=== PATIENT | male | born 1970 | race Caucasian/White ===

== ENCOUNTER 2018-01-20 08:05 | Emergency (ER) | payer MEDICAID, OTHER ==
[~2018-01-20] VITALS: Ht 172.7 cm; Wt 86.4 kg
[~2018-01-20 08:05] MED LIST: CYCL-1 PO; DICL50TA8 PO; DOCU-28 PO; HYDR-3972 PO; LISI-604 PO; METF-436 PO
[2018-01-20] MEDS ORDERED: ketorolac trometh inj. 60 MG/2 ML VIAL IM ONE (08:50)
[2018-01-20] MEDS ORDERED: HYDROcodone/acetaminophen 10/325mg tab PO ONE (08:50)
[2018-01-20 09:10] LABS: BASOPHILS % (AUTO) 0 % (0-1); EOSINOPHILS % (AUTO) 0 % (0-6); HEMATOCRIT 40.9 % (42.0-52.0); HEMOGLOBIN 14.1 g/dl (14.0-17.9); LYMPHOCYTES # (AUTO) 0.5 X10'3 (1.1-4.8); MEAN CORPUSCULAR HEMOGLOBIN 28.8 PG (27.0-31.0); MEAN CORPUSCULAR HGB CONC 34.6 % (33.0-36.5); MEAN CORPUSCULAR VOLUME 83.4 FL (78-98); MEAN PLATELET VOLUME 7.7 FL (7.4-10.4); MONOCYTES # (AUTO) 0.9 X10'3 (0-0.9); NEUTROPHILS # (AUTO) 16.2 X10'3 (1.8-7.7); PLATELET COUNT 190 X10'3 (140-440); RED CELL DISTRIBUTION WIDTH 14.5 % (11.5-14.5); WHITE BLOOD COUNT 17.7 X10'3 (4.5-11.0)
[2018-01-20 09:14] LABS: CLARITY,URINE CLEAR (Clear); COLOR,URINE AMBER (Yellow); GLUCOSE, URINE NEGATIVE (Neg); KETONES,URINE >=80 mg/dl (Neg); LEUKOCYTE ESTERASE ,URINE NEGATIVE (Neg); NITRITES, URINE NEGATIVE (Neg); OCCULT BLOOD,URINE SMALL (Neg); PROTEIN,URINE 100 mg/dl (Neg); UROBILINOGEN,URINE >=8.0 E.U/dL (0.2-1.0)
[2018-01-20 09:19] LABS: UA COLLECTION TYPE CLN CATCH MIDSTREAM
[2018-01-20 09:21] LABS: MUCUS STRANDS MANY /LPF (Neg); SQUAMOUS EPITHELIAL CELL,UR FEW /LPF (FEW)
[2018-01-20 09:24] LABS: BACTERIA,URINE NONE SEEN /HPF (Neg); WBC,URINE 0-4 /HPF (0-4)
[2018-01-20 09:24] LABS: ALANINE AMINOTRANSFERASE 43 U/L (12-78); ALBUMIN 3.1 G/DL (3.4-5.0); ALBUMIN/GLOBULIN RATIO 0.6 (1.1-1.5); ALKALINE PHOSPHATASE 86 IU/L (46-116); ANION GAP 10 (8-16); ASPARTATE AMINO TRANSFERASE 24 U/L (10-37); BILIRUBIN,TOTAL 1.3 MG/DL (0.1-1.0); BLOOD UREA NITROGEN 14 MG/DL (7-18); BUN/CREATININE RATIO 13.9 (5.4-32.0); CHLORIDE 97 MMOL/L (99-107); CREATININE 1.01 MG/DL (0.60-1.10); GLUCOSE 144 MG/DL (70-104); LIPASE 52 U/L (73-393); POTASSIUM 3.9 MMOL/L (3.5-5.1); SODIUM 133 MMOL/L (135-145); TOTAL CARBON DIOXIDE 25.6 MMOL/L (24-32); TOTAL PROTEIN 8.2 G/DL (6.4-8.2); eGFR 80 ML/MIN
[2018-01-20 09:27] LABS: SPERM MODERATE /HPF (NEGATIVE)
[2018-01-20 09:29] LABS: CALCIUM 9.4 MG/DL (8.5-10.1)
[2018-01-20 10:26] VITALS: BP 128/74
== END 2018-01-20 10:28 | disposition home or self-care (01) ==
LOC: ER 08:05
DX: M54.5 Low back pain (principal); D72.829 Elevated white blood cell count, unspecified; I10 Essential (primary) hypertension; E11.9 Type 2 diabetes mellitus without complications; G89.29 Other chronic pain; F12.90 Cannabis use, unspecified, uncomplicated; F15.90 Other stimulant use, unspecified, uncomplicated; Z79.84 Long term (current) use of oral hypoglycemic drugs; Z79.899 Other long term (current) drug therapy; X50.1XXA Overexertion from prolonged static or awkward postures, initial encounter; Y93.39 Activity, other involving climbing, rappelling and jumping off; Y92.89 Other specified places as the place of occurrence of the external cause; Y99.8 Other external cause status
CPT/HCPCS: 36415; 71046; 80053; 81001; 83690; 85025; 96372; 99285; J1885

== ENCOUNTER 2018-09-04 22:04 | Emergency (ER) | payer MEDICAID ==
[~2018-09-04] VITALS: Ht 175.3 cm; Wt 81.8 kg
[2018-09-04 22:21] VITALS: BP 128/82
[2018-09-05] MEDS ORDERED: ondansetron 4mg rapidly disintigrating tab PO ONE (00:30)
[2018-09-05] MEDS ORDERED: sulfamethoxazole/trimethoprim DS (800/160mg) tablet PO ONE (00:30)
[2018-09-05] MEDS ORDERED: SULF1TAB49 PO (01:31)
[2018-09-05] MEDS ORDERED: TETanus/Pertussis (Acell)/Diphther VAC/PF (Tdap-Adult) 0.5ml syringe IM ONE (01:35)
[2018-09-05] MEDS ORDERED: bacitracin 15gm ointment TP ONE (01:35)
[2018-09-06] MEDS ORDERED: iohexol 300mg/ml 100ml inj. ONE (22:41)
== END 2018-09-05 02:03 | disposition home or self-care (01) ==
LOC: ER 22:05
DX: L02.01 Cutaneous abscess of face (principal); I10 Essential (primary) hypertension; E11.9 Type 2 diabetes mellitus without complications; G89.29 Other chronic pain; F12.90 Cannabis use, unspecified, uncomplicated; F15.90 Other stimulant use, unspecified, uncomplicated; Z79.84 Long term (current) use of oral hypoglycemic drugs; Z79.899 Other long term (current) drug therapy; W10.8XXA Fall (on) (from) other stairs and steps, initial encounter; Y93.89 Activity, other specified; Y92.89 Other specified places as the place of occurrence of the external cause; Y99.8 Other external cause status
CPT/HCPCS: 10060; 70450; 90471; 90715; 99284; Q9967

== ENCOUNTER 2018-09-06 19:24 | Inpatient (IN) | payer MEDICAID ==
[~2018-09-06] VITALS: Ht 175.3 cm; Wt 86.5 kg
[~2018-09-06 19:24] MED LIST changes: +SULF1TAB49 PO
[2018-09-06] MEDS ORDERED: ibuprofen tablet 400 MG TABLET PO ONE (21:45)
[2018-09-06] MEDS ORDERED: ibuprofen 200mg tablet PO ONE (21:45)
[2018-09-06 22:00] LABS: BASOPHILS # (AUTO) 0.1 X10'3 (0-0.2); BASOPHILS % (AUTO) 0.5 % (0-1); EOSINOPHILS # (AUTO) 0.5 X10'3 (0-0.9); EOSINOPHILS % (AUTO) 4.5 % (0-6); HEMATOCRIT 38.9 % (42.0-52.0); HEMOGLOBIN 13.1 g/dl (14.0-17.9); LYMPHOCYTES % (AUTO) 18.1 % (21-51); MEAN CORPUSCULAR HEMOGLOBIN 28.3 PG (27.0-31.0); MEAN CORPUSCULAR HGB CONC 33.6 g/dL (33.0-36.5); MEAN CORPUSCULAR VOLUME 84.2 FL (78-98); MEAN PLATELET VOLUME 7.9 FL (7.4-10.4); MONOCYTES # (AUTO) 0.9 X10'3 (0-0.9); MONOCYTES % (AUTO) 8.1 % (2-12); NEUTROPHILS # (AUTO) 7.7 X10'3 (1.8-7.7); NEUTROPHILS % (AUTO) 68.8 % (42-75); PLATELET COUNT 259 X10'3 (140-440); RED BLOOD COUNT 4.62 X10'6 (4.70-6.10); RED CELL DISTRIBUTION WIDTH 14.9 % (11.5-14.5); WHITE BLOOD COUNT 11.2 X10'3 (4.5-11.0)
[2018-09-06 22:04] LABS: ANION GAP 5 (8-16); BLOOD UREA NITROGEN 14 MG/DL (7-18); BUN/CREATININE RATIO 15.6 (5.4-32.0); CALCIUM 9.9 MG/DL (8.5-10.1); CHLORIDE 103 MMOL/L (99-107); GLUCOSE 134 MG/DL (70-104); POTASSIUM 4.6 MMOL/L (3.5-5.1); SODIUM 137 MMOL/L (135-145); TOTAL CARBON DIOXIDE 29.5 MMOL/L (24-32); eGFR > 90 ML/MIN
[2018-09-06] MEDS ORDERED: piperacillin/tazo 3.375gm/50ml 50 ML IV ONE (22:35)
[2018-09-06] MEDS ORDERED: vancomycin/NS 1 GM ADD-VANTAGE 250 ML IV ONE (22:35)
--- NOTE | 2018-09-07 01:17 | NUR ---
forehead abcess swab for culture collected and taken to lab.
[2018-09-07] MEDS ORDERED: magnesium Cl slow-release 64mg tablet PO PRN (02:25)
[2018-09-07] MEDS ORDERED: ondansetron/PF 4mg/2ml inj IV PRN (02:25)
[2018-09-07] MEDS ORDERED: HYDROcodone/acetaminophen 5mg/325mg tablet PO PRN (02:25)
[2018-09-07] MEDS ORDERED: glucagon, human recombinant 1mg kit SUBCUT PRN (02:25)
[2018-09-07] MEDS ORDERED: potassium Cl 40MEQ/NS 500ml 500 ML IV PRN ×2 (02:25)
[2018-09-07] MEDS ORDERED: dextrose 50%-water 50ml dispensing syringe IV PRN ×2 (02:25)
[2018-09-07] MEDS ORDERED: HYDROcodone/acetaminophen 10/325mg tab PO PRN (02:25)
[2018-09-07] MEDS ORDERED: MESSAGE TO PHARMACY PO ONE (02:25)
[2018-09-07] MEDS ORDERED: magnesium 2GM in 50ml NS 50 ML IV PRN (02:25)
[2018-09-07] MEDS ORDERED: mag hydrox/Alum hydrox/simeth 30ml oral suspension PO PRN (02:25)
[2018-09-07] MEDS ORDERED: dextrose ORAL solution 15 GM/59 ML bottle PO PRN ×2 (02:25)
[2018-09-07] MEDS ORDERED: magnesium hydroxide 30ml (MOM) UD suspension PO PRN (02:25)
[2018-09-07] MEDS ORDERED: insulin Lispro (HumaLOG) vial - multi-dose SQ SCH (02:25)
[2018-09-07] MEDS ORDERED: potassium Cl 20 mEq SR tablet PO PRN ×2 (02:25)
[2018-09-07] MEDS ORDERED: acetaminophen 325mg tablet PO PRN (02:25)
[2018-09-07] MEDS ORDERED: magnesium 4gm in 100ml NS 100 ML IV PRN (02:25)
[2018-09-07 03:00] VITALS: BP 156/91
[2018-09-07] MEDS: normal saline 1000ml 1,000 ML IV SCH ×3 (03:57→21:32)
--- NOTE | 2018-09-07 06:07 | NUR ---
Pt repeatedly refused shower, bed bath, and to answer any questions once in bed.
--- NOTE | 2018-09-07 06:30 | NUR ---
Patient in room [facility]. I have received report from Faheem BACH and had the opportunity to ask questions and assume patient care.
--- NOTE | 2018-09-07 06:39 | NUR ---
Problems reprioritized. Patient report given, questions answered & plan of care reviewed with Richard RN.
[2018-09-07 07:23] VITALS: BP 157/92
[2018-09-07] MEDS: K and/or MAG REPLACEMENT MC SCH (08:00)
--- NOTE | 2018-09-07 09:19 | NUR ---
PATIENT WAS FOUND TO HAVE LICE NITZ IN HIS HAIR, UPON FINDING THIS WE ASKED THE PATIENT IF HE WOULD AGREE TO HAVE HIS HAIR SHAVED OFF. PATIENT AGREED TO HAVE HAIR AND [place] SHAVED OFF AT THIS TIME. TECH SHAVED PATIENT HEAD AND FACIAL HAIR AT THIS TIME.
[2018-09-07] MEDS: vancomycin inj 1,250 MG in NS 250ml IV soln IV SCH ×3 (09:38→23:59)
[2018-09-07] MEDS: cefepime 1GM/NS ADD-VANTAGE 100 ML IV SCH ×3 (09:39→23:19)
[2018-09-07] MEDS: lisinopril 5mg tablet PO SCH (09:39)
[2018-09-07] MEDS: enoxaparin 40mg/0.4ml syringe SQ SCH (09:44)
[2018-09-07] MEDS ORDERED: Permethrin 1% 59ml topical rinse TP ONE (10:00)
[2018-09-07 11:00] VITALS: BP 142/100
[2018-09-07] MEDS: ibuprofen tablet 400 MG TABLET PO PRN ×2 (12:10→19:39)
[2018-09-07] MEDS: acetaminophen 325mg tablet PO PRN ×2 (12:11→19:39)
--- NOTE | 2018-09-07 15:40 | NUR ---
DM Consult: Pt A1C <7 and not appropriate for ed at this time. Addendum: 09/07/18 at [address] Amended: Links added.
--- NOTE | 2018-09-07 18:16 | NUR ---
Problems reprioritized. Patient report given, questions answered & plan of care reviewed with Oren BACH.
[2018-09-07 19:10] VITALS: BP 122/76
[2018-09-07] MEDS: cyclobenzaprine 10mg tablet PO PRN (19:39)
[2018-09-07] MEDS: lactobacillus rhamnosus 10,000 MMU CELLS/CAPSULE PO SCH (20:09)
[2018-09-07] MEDS ORDERED: temazepam 15mg capsule PO PRN (21:00)
[2018-09-07] MEDS: insulin glargine (Lantus) pen - multi-dose SQ SCH (21:00)
[2018-09-08] VITALS: BP 118/78
[2018-09-08 05:28] LABS: BASOPHILS # (AUTO) 0.1 X10'3 (0-0.2); BASOPHILS % (AUTO) 0.9 % (0-1); EOSINOPHILS # (AUTO) 0.5 X10'3 (0-0.9); EOSINOPHILS % (AUTO) 7.9 % (0-6); HEMATOCRIT 37.5 % (42.0-52.0); HEMOGLOBIN 12.7 g/dl (14.0-17.9); LYMPHOCYTES # (AUTO) 1.4 X10'3 (1.1-4.8); LYMPHOCYTES % (AUTO) 21.9 % (21-51); MEAN CORPUSCULAR HEMOGLOBIN 28.4 PG (27.0-31.0); MEAN CORPUSCULAR HGB CONC 33.8 g/dL (33.0-36.5); MEAN CORPUSCULAR VOLUME 84.1 FL (78-98); MEAN PLATELET VOLUME 7.6 FL (7.4-10.4); MONOCYTES # (AUTO) 0.5 X10'3 (0-0.9); MONOCYTES % (AUTO) 7.2 % (2-12); NEUTROPHILS # (AUTO) 3.9 X10'3 (1.8-7.7); NEUTROPHILS % (AUTO) 62.1 % (42-75); PLATELET COUNT 220 X10'3 (140-440); RED BLOOD COUNT 4.46 X10'6 (4.70-6.10); RED CELL DISTRIBUTION WIDTH 14.9 % (11.5-14.5); WHITE BLOOD COUNT 6.3 X10'3 (4.5-11.0)
[2018-09-08 05:40] LABS: ALANINE AMINOTRANSFERASE 65 U/L (12-78); ALBUMIN 2.5 G/DL (3.4-5.0); ALBUMIN/GLOBULIN RATIO 0.6 (1.1-1.5); ALKALINE PHOSPHATASE 69 IU/L (46-116); ANION GAP 6 (8-16); ASPARTATE AMINO TRANSFERASE 39 U/L (10-37); BILIRUBIN,TOTAL 0.2 MG/DL (0.1-1.0); BLOOD UREA NITROGEN 10 MG/DL (7-18); BUN/CREATININE RATIO 11.8 (5.4-32.0); CHLORIDE 108 MMOL/L (99-107); CHOLESTEROL 131 MG/DL (0-200); CREATININE 0.85 MG/DL (0.60-1.10); GLUCOSE 102 MG/DL (70-104); HDL CHOLESTEROL 33 MG/DL (35-60); LDL CHOLESTEROL 87 MG/DL (50-100); POTASSIUM 4.1 MMOL/L (3.5-5.1); SODIUM 139 MMOL/L (135-145); TOTAL CARBON DIOXIDE 25.2 MMOL/L (24-32); TRIGLYCERIDES 103 MG/DL (20-135); eGFR > 90 ML/MIN
--- NOTE | 2018-09-08 06:39 | NUR ---
Problems reprioritized. Patient report given, questions answered & plan of care reviewed with [facility]UM[facility]. Addendum: 09/08/18 at 0640 by Derirck Mckenna RN Amended: Links added.
[2018-09-08 07:00] VITALS: BP 139/92
[2018-09-08] MEDS ORDERED: VANCOMYCIN LEVEL IV NR (07:30)
[2018-09-08] MEDS: K and/or MAG REPLACEMENT MC SCH (08:00)
[2018-09-08] MEDS: normal saline 1000ml 1,000 ML IV SCH ×2 (08:23→18:23)
[2018-09-08] MEDS: cefepime 1GM/NS ADD-VANTAGE 100 ML IV SCH (10:20)
[2018-09-08] MEDS: lactobacillus rhamnosus 10,000 MMU CELLS/CAPSULE PO SCH ×2 (10:20→20:43)
[2018-09-08] MEDS: lisinopril 5mg tablet PO SCH (10:21)
[2018-09-08] MEDS: enoxaparin 40mg/0.4ml syringe SQ SCH (10:22)
[2018-09-08] MEDS: vancomycin inj 1,250 MG in NS 250ml IV soln IV SCH ×3 (10:38→23:38)
[2018-09-08] MEDS: acetaminophen 325mg tablet PO PRN (10:42)
[2018-09-08 12:00] VITALS: BP 117/84
--- NOTE | 2018-09-08 19:06 | NUR ---
Pt. in bed comfortable with no needs at this time. Gave report to Nidia BACH.
[2018-09-08] MEDS: mineral oil/petrolatum, white cream 113gm jar TP SCH (20:45)
[2018-09-08] MEDS: neomy sulf/bacitrac zn/polymixin b oint 14.2 gm tube TP SCH (20:45)
[2018-09-08] MEDS: insulin glargine (Lantus) pen - multi-dose SQ SCH (21:00)
--- NOTE | 2018-09-08 21:34 | NUR ---
Patient in room [facility]. I have received report from MIKALA Slater and had the opportunity to ask questions and assume patient care. Addendum: 09/08/18 at 2135 by Nidia Alejo RN Amended: Links added.
[2018-09-09 00:13] VITALS: BP 131/82
[2018-09-09] MEDS: normal saline 1000ml 1,000 ML IV SCH (04:23)
[2018-09-09 05:50] LABS: BASOPHILS % (AUTO) 0.8 % (0-1); EOSINOPHILS # (AUTO) 0.3 X10'3 (0-0.9); EOSINOPHILS % (AUTO) 6.1 % (0-6); HEMATOCRIT 36.3 % (42.0-52.0); HEMOGLOBIN 12.5 g/dl (14.0-17.9); LYMPHOCYTES # (AUTO) 1.3 X10'3 (1.1-4.8); LYMPHOCYTES % (AUTO) 24.9 % (21-51); MEAN CORPUSCULAR HEMOGLOBIN 28.9 PG (27.0-31.0); MEAN CORPUSCULAR HGB CONC 34.5 g/dL (33.0-36.5); MEAN CORPUSCULAR VOLUME 83.8 FL (78-98); MEAN PLATELET VOLUME 7.7 FL (7.4-10.4); MONOCYTES # (AUTO) 0.4 X10'3 (0-0.9); MONOCYTES % (AUTO) 8.4 % (2-12); NEUTROPHILS # (AUTO) 3.2 X10'3 (1.8-7.7); NEUTROPHILS % (AUTO) 59.8 % (42-75); PLATELET COUNT 226 X10'3 (140-440); RED BLOOD COUNT 4.33 X10'6 (4.70-6.10); RED CELL DISTRIBUTION WIDTH 14.4 % (11.5-14.5); WHITE BLOOD COUNT 5.3 X10'3 (4.5-11.0)
[2018-09-09 06:09] LABS: ALANINE AMINOTRANSFERASE 112 U/L (12-78); ALBUMIN 2.6 G/DL (3.4-5.0); ALBUMIN/GLOBULIN RATIO 0.6 (1.1-1.5); ALKALINE PHOSPHATASE 70 IU/L (46-116); ANION GAP 3 (8-16); ASPARTATE AMINO TRANSFERASE 88 U/L (10-37); BILIRUBIN,TOTAL 0.2 MG/DL (0.1-1.0); BLOOD UREA NITROGEN 11 MG/DL (7-18); BUN/CREATININE RATIO 10.6 (5.4-32.0); CALCIUM 8.6 MG/DL (8.5-10.1); CHLORIDE 107 MMOL/L (99-107); CREATININE 1.04 MG/DL (0.60-1.10); GLUCOSE 93 MG/DL (70-104); MAGNESIUM 1.8 MG/DL (1.5-2.4); SODIUM 139 MMOL/L (135-145); TOTAL PROTEIN 7.1 G/DL (6.4-8.2); eGFR 77 ML/MIN
--- NOTE | 2018-09-09 06:19 | NUR ---
Problems reprioritized. Patient report given, questions answered & plan of care reviewed with MIKALA Slater. Addendum: 09/09/18 at 0619 by Nidia Alejo RN Amended: Links added.
[2018-09-09 07:00] VITALS: BP 131/93
[2018-09-09] MEDS: K and/or MAG REPLACEMENT MC SCH (08:00)
[2018-09-09] MEDS: neomy sulf/bacitrac zn/polymixin b oint 14.2 gm tube TP SCH (08:00)
[2018-09-09] MEDS: mineral oil/petrolatum, white cream 113gm jar TP SCH (08:00)
--- NOTE | 2018-09-09 08:40 | NUR ---
PAGER ID: [phone] MESSAGE: [phone] Jaren Goncalves Forehead abscess culture positive for MRSA Nohemy [id number]
[2018-09-09] MEDS: vancomycin inj 1,250 MG in NS 250ml IV soln IV SCH (09:24)
[2018-09-09] MEDS: lactobacillus rhamnosus 10,000 MMU CELLS/CAPSULE PO SCH (09:25)
[2018-09-09] MEDS: lisinopril 5mg tablet PO SCH (09:25)
[2018-09-09] MEDS: cyclobenzaprine 10mg tablet PO PRN (09:26)
[2018-09-09] MEDS: enoxaparin 40mg/0.4ml syringe SQ SCH (09:26)
[2018-09-09] MEDS: acetaminophen 325mg tablet PO PRN (09:26)
[2018-09-09] MEDS ORDERED: AMOX500C2 PO (12:03)
[2018-09-09] MEDS ORDERED: CLIN-96 PO (12:03)
[2018-09-09] MEDS ORDERED: LACT1CAP26 PO (12:03)
[2018-09-09] MEDS ORDERED: NEOM28.37 TP (12:05)
--- NOTE | 2018-09-09 14:15 | NUR ---
pt. discharged in a stable condition. Able to give good feedback r/t changing his own wound drsg. drsg. on CDI. abscess draining. MRSA education given to pt. as well as diabetic pamphlet. Pt. know to follow up with [facility] or [facility]. Had medications delivered to bedside by [facility], made sure pt. took them with them. Extra supplies given for wound changes. Pt. took all his belongings. IV DC'd, pressure bandage applied, no s/sx bleeding noted. Hospital band removed. pt. escorted out of building by hospital staff member to ambulate home- pt. [place] hospital.
== END 2018-09-09 14:11 | disposition home or self-care (01) | DRG 383 ==
LOC: ER 19:25 → SUR 3N 09-07 02:23 → CMPBEDREQ 09-07 03:57
PROVIDERS: ADMIT Family Medicine; ATTEND Hospitalist
DX: L02.01 Cutaneous abscess of face (principal); B19.20 Unspecified viral hepatitis C without hepatic coma; L03.213 Periorbital cellulitis; B95.62 Methicillin resistant Staphylococcus aureus infection as the cause of diseases classified elsewhere; E11.9 Type 2 diabetes mellitus without complications; F12.90 Cannabis use, unspecified, uncomplicated; W18.39XA Other fall on same level, initial encounter; F17.210 Nicotine dependence, cigarettes, uncomplicated; G89.29 Other chronic pain; I10 Essential (primary) hypertension; Z86.14 Personal history of Methicillin resistant Staphylococcus aureus infection; Y93.89 Activity, other specified; Y92.89 Other specified places as the place of occurrence of the external cause; Y99.8 Other external cause status; Z79.899 Other long term (current) drug therapy; Z89.021 Acquired absence of right finger(s)
CPT/HCPCS: 36415; 70486; 80048; 80053; 80061; 80202; 82948; 83036; 83605; 83735; 85025; 87040; 87070; 87077; 87186; 96365; 96368; 99285; G0378; J0692; J1650; J1815; J2543; J3370; J7030

== ENCOUNTER 2019-01-10 21:09 | Emergency (ER) | payer MEDICAID ==
[~2019-01-10] VITALS: Ht 170.2 cm; Wt 93.2 kg
[~2019-01-10 21:09] MED LIST changes: +CLIN-96 PO; -DICL50TA8 PO; -DOCU-28 PO; -HYDR-3972 PO; +LACT1CAP26 PO; +NEOM28.37 TP; -SULF1TAB49 PO
[2019-01-10 21:21] VITALS: BP 117/73
[2019-01-10] MEDS ORDERED: SULF1TAB49 PO (22:25)
== END 2019-01-10 22:33 | disposition home or self-care (01) ==
LOC: ER 21:10
DX: L03.116 Cellulitis of left lower limb (principal); R46.0 Very low level of personal hygiene; I10 Essential (primary) hypertension; E11.9 Type 2 diabetes mellitus without complications; G89.29 Other chronic pain; Z59.0 Homelessness; Z79.2 Long term (current) use of antibiotics; Z79.84 Long term (current) use of oral hypoglycemic drugs; Z79.899 Other long term (current) drug therapy
CPT/HCPCS: 99283

== ENCOUNTER 2019-09-15 10:13 | Emergency (ER) | payer MEDICAID ==
[~2019-09-15] VITALS: Ht 172.7 cm; Wt 73.1 kg
[~2019-09-15 10:13] MED LIST changes: -CLIN-96 PO; +CLIN-97 PO
[2019-09-15] MEDS ORDERED: bacitracin/polymyxin B 15 GM ointment TP SCH (10:55)
[2019-09-15] MEDS ORDERED: bacitracin/polymyxin B 15 GM ointment TP ONE (10:55)
[2019-09-15] MEDS ORDERED: DOXY-1 PO (11:18)
[2019-09-15] MEDS ORDERED: NAPR-56 PO (11:18)
[2019-09-15] MEDS ORDERED: BACI1PAC7 TOP (11:18)
[2019-09-15 11:39] VITALS: BP 143/102
== END 2019-09-15 11:40 | disposition home or self-care (01) ==
LOC: ER 10:14
DX: T23.201A Burn of second degree of right hand, unspecified site, initial encounter (principal); T23.202A Burn of second degree of left hand, unspecified site, initial encounter; T21.21XA Burn of second degree of chest wall, initial encounter; T31.0 Burns involving less than 10% of body surface; I10 Essential (primary) hypertension; E11.9 Type 2 diabetes mellitus without complications; G89.29 Other chronic pain; F12.90 Cannabis use, unspecified, uncomplicated; F15.90 Other stimulant use, unspecified, uncomplicated; Z86.19 Personal history of other infectious and parasitic diseases; Z72.89 Other problems related to lifestyle; Z79.899 Other long term (current) drug therapy; Z79.84 Long term (current) use of oral hypoglycemic drugs; Z89.021 Acquired absence of right finger(s); X08.8XXA Exposure to other specified smoke, fire and flames, initial encounter; Y93.89 Activity, other specified; Y92.89 Other specified places as the place of occurrence of the external cause; Y99.8 Other external cause status
CPT/HCPCS: 16020; 99283; 99285

== ENCOUNTER 2019-10-09 10:24 | Emergency (ER) | payer MEDICAID ==
[~2019-10-09] VITALS: Ht 175.3 cm; Wt 98.2 kg
[~2019-10-09 10:24] MED LIST changes: +BACI1PAC7 TOP; +NAPR-56 PO
[2019-10-09 10:57] LABS: BASOPHILS % (AUTO) 0.6 % (0-1); EOSINOPHILS # (AUTO) 0.7 X10'3 (0-0.9); EOSINOPHILS % (AUTO) 7.9 % (0-6); HEMATOCRIT 41.9 % (42.0-52.0); HEMOGLOBIN 14.3 g/dl (14.0-17.9); LYMPHOCYTES # (AUTO) 1.9 X10'3 (1.1-4.8); LYMPHOCYTES % (AUTO) 22.6 % (21-51); MEAN CORPUSCULAR HEMOGLOBIN 28.9 PG (27.0-31.0); MEAN CORPUSCULAR HGB CONC 34.1 g/dL (33.0-36.5); MEAN CORPUSCULAR VOLUME 84.9 FL (78-98); MONOCYTES # (AUTO) 0.7 X10'3 (0-0.9); MONOCYTES % (AUTO) 8.8 % (2-12); NEUTROPHILS % (AUTO) 60.1 % (42-75); PLATELET COUNT 213 X10'3 (140-440); RED BLOOD COUNT 4.93 X10'6 (4.70-6.10); RED CELL DISTRIBUTION WIDTH 14.9 % (11.5-14.5); WHITE BLOOD COUNT 8.4 X10'3 (4.5-11.0)
[2019-10-09 11:13] LABS: ALANINE AMINOTRANSFERASE 80 U/L (12-78); ALBUMIN 3.8 G/DL (3.4-5.0); ALBUMIN/GLOBULIN RATIO 0.7 (1.1-1.5); ALKALINE PHOSPHATASE 97 IU/L (46-116); ANION GAP 12 (8-16); ASPARTATE AMINO TRANSFERASE 83 U/L (10-37); BILIRUBIN,TOTAL 0.8 MG/DL (0.1-1.0); BLOOD UREA NITROGEN 29 MG/DL (7-18); CALCIUM 8.9 MG/DL (8.5-10.1); CHLORIDE 103 MMOL/L (99-107); CREATININE 1.81 MG/DL (0.60-1.10); GLUCOSE 84 MG/DL (70-104); LIPASE 98 U/L (73-393); POTASSIUM 3.7 MMOL/L (3.5-5.1); SODIUM 140 MMOL/L (135-145); TOTAL CARBON DIOXIDE 24.9 MMOL/L (24-32); TOTAL PROTEIN 9.5 G/DL (6.4-8.2); eGFR 40 ML/MIN
[2019-10-09 11:42] VITALS: BP 129/80
== END 2019-10-09 11:44 | disposition home or self-care (01) ==
LOC: ER 10:24
DX: R10.32 Left lower quadrant pain (principal); R11.2 Nausea with vomiting, unspecified; I10 Essential (primary) hypertension; E11.9 Type 2 diabetes mellitus without complications; G89.29 Other chronic pain; F12.90 Cannabis use, unspecified, uncomplicated; F15.90 Other stimulant use, unspecified, uncomplicated; Z86.19 Personal history of other infectious and parasitic diseases; Z72.89 Other problems related to lifestyle; Z79.899 Other long term (current) drug therapy; Z79.84 Long term (current) use of oral hypoglycemic drugs; Z59.0 Homelessness
CPT/HCPCS: 36415; 80053; 83690; 85025; 99283

== ENCOUNTER 2019-12-31 17:20 | Emergency (ER) | payer MEDICAID ==
[~2019-12-31] VITALS: Ht 172.7 cm; Wt 79.5 kg
[~2019-12-31 17:20] MED LIST changes: -BACI1PAC7 TOP
[2019-12-31] MEDS ORDERED: ketorolac tromethamine 15mg/ml inj. IM ONE (18:30)
[2019-12-31 18:54] VITALS: BP 120/74
== END 2019-12-31 18:48 | disposition home or self-care (01) ==
LOC: ER 17:21
DX: M54.5 Low back pain (principal); N50.819 Testicular pain, unspecified; I10 Essential (primary) hypertension; E11.9 Type 2 diabetes mellitus without complications; G89.29 Other chronic pain; F12.90 Cannabis use, unspecified, uncomplicated; F15.90 Other stimulant use, unspecified, uncomplicated; Z86.19 Personal history of other infectious and parasitic diseases; Z72.89 Other problems related to lifestyle; Z79.2 Long term (current) use of antibiotics; Z79.899 Other long term (current) drug therapy
CPT/HCPCS: 96372; 99283; J1885

== ENCOUNTER 2020-06-03 10:21 | Emergency (ER) | payer MEDICAID ==
[~2020-06-03] VITALS: Ht 172.7 cm; Wt 79.0 kg
[2020-06-03 10:30] VITALS: BP 168/90
[2020-06-03] MEDS ORDERED: acetaminophen 325mg tablet PO ONE (10:40)
[2020-06-03] MEDS ORDERED: bacitracin 15gm ointment TP ONE (10:40)
[2020-06-03] MEDS ORDERED: ketorolac tromethamine 15mg/ml inj. IM ONE (10:40)
[2020-06-03] MEDS ORDERED: SULF1TAB49 PO (10:44)
== END 2020-06-03 11:09 | disposition home or self-care (01) ==
LOC: ER 10:21
DX: T23.122A Burn of first degree of single left finger (nail) except thumb, initial encounter (principal); M79.642 Pain in left hand; I10 Essential (primary) hypertension; E11.9 Type 2 diabetes mellitus without complications; G89.29 Other chronic pain; F12.90 Cannabis use, unspecified, uncomplicated; F15.90 Other stimulant use, unspecified, uncomplicated; Z59.0 Homelessness; Z86.19 Personal history of other infectious and parasitic diseases; Z72.89 Other problems related to lifestyle; Z79.2 Long term (current) use of antibiotics; Z79.899 Other long term (current) drug therapy; X08.8XXA Exposure to other specified smoke, fire and flames, initial encounter; Y93.89 Activity, other specified; Y92.89 Other specified places as the place of occurrence of the external cause; Y99.8 Other external cause status
CPT/HCPCS: 96372; 99283; J1885

== ENCOUNTER 2020-11-19 21:42 | Emergency (ER) | payer MEDICAID ==
[~2020-11-19] VITALS: Ht 172.7 cm; Wt 98.2 kg
[~2020-11-19 21:42] MED LIST changes: -LISI-604 PO; +LISI-790 PO
--- NOTE | 2020-11-19 23:45 | NUR ---
Patient laying in stretcher with eyes closed, even and unlabored respirations. Appears to be asleep .
--- NOTE | 2020-11-20 00:44 | NUR ---
Patient provided with water
--- NOTE | 2020-11-20 03:20 | NUR ---
Patient laying in stretcher, able to turn and reaccomadate himself independently. Even and unlabored respirations- appears to be asleep.
[2020-11-20] MEDS ORDERED: ketorolac tromethamine 15mg/ml inj. IV ONE (05:10)
[2020-11-20 05:20] VITALS: BP 138/94
== END 2020-11-20 05:21 | disposition home or self-care (01) ==
LOC: ER 21:43
DX: F15.10 Other stimulant abuse, uncomplicated (principal); G89.29 Other chronic pain; M54.9 Dorsalgia, unspecified; E11.9 Type 2 diabetes mellitus without complications; I10 Essential (primary) hypertension; F12.10 Cannabis abuse, uncomplicated; Z56.0 Unemployment, unspecified
CPT/HCPCS: 99285

== ENCOUNTER 2022-10-23 19:09 | Emergency (ER) | payer MEDICAID ==
[~2022-10-23] VITALS: Ht 172.7 cm; Wt 98.5 kg
[~2022-10-23 19:09] MED LIST changes: -LISI-790 PO; +LISI5TAB22 PO
[2022-10-23 19:24] VITALS: BP 177/108
[2022-10-23] MEDS ORDERED: TETanus/Pertussis (Acell)/Diphther VAC/PF (Tdap-Adult) 0.5ml syringe IMVAC ONE (20:30)
[2022-10-23] MEDS ORDERED: LIDOcaine 1% W/epiNEPHrine 1:100,000 20ml vial SQ ONE (20:30)
[2022-10-23] MEDS ORDERED: CEPH250T PO (20:50)
[2022-10-23] MEDS ORDERED: sulfamethoxazole/trimethoprim DS (800/160mg) tablet PO ONE (20:50)
[2022-10-23] MEDS ORDERED: SULF1TAB45 PO (20:50)
[2022-10-23] MEDS ORDERED: cephalexin 500mg capsule PO ONE (20:50)
--- NOTE | 2022-10-23 20:54 | NUR ---
dressing applied to wound site
== END 2022-10-23 21:28 | disposition home or self-care (01) ==
LOC: ER 19:10
DX: S60.551A Superficial foreign body of right hand, initial encounter (principal); I10 Essential (primary) hypertension; E11.9 Type 2 diabetes mellitus without complications; F12.90 Cannabis use, unspecified, uncomplicated; F15.20 Other stimulant dependence, uncomplicated; W45.8XXA Other foreign body or object entering through skin, initial encounter; Y93.89 Activity, other specified; Y92.89 Other specified places as the place of occurrence of the external cause; Y99.8 Other external cause status
CPT/HCPCS: 73130; 90471; 90715; 99284; J3490

== ENCOUNTER 2022-10-24 20:07 | Emergency (ER) | payer MEDICAID ==
[~2022-10-24] VITALS: Ht 172.7 cm; Wt 100.0 kg
[~2022-10-24 20:07] MED LIST changes: +CEPH250T PO; +SULF1TAB45 PO
[2022-10-24 20:15] VITALS: BP 156/99
== END 2022-10-24 22:04 | disposition home or self-care (01) ==
LOC: ER 20:08
DX: S60.351D Superficial foreign body of right thumb, subsequent encounter (principal); I10 Essential (primary) hypertension; E11.9 Type 2 diabetes mellitus without complications; F12.90 Cannabis use, unspecified, uncomplicated; F15.20 Other stimulant dependence, uncomplicated; W45.8XXD Other foreign body or object entering through skin, subsequent encounter
CPT/HCPCS: 99282

== ENCOUNTER 2022-12-23 23:40 | Emergency (ER) | payer MEDICAID ==
[~2022-12-23] VITALS: Ht 175.3 cm; Wt 100.9 kg
[~2022-12-23 23:40] MED LIST changes: -CEPH250T PO; -SULF1TAB45 PO
[2022-12-24 00:24] LABS: BASOPHILS % (AUTO) 0.3 % (0-1); EOSINOPHILS # (AUTO) 0.2 X10'3 (0-0.9); EOSINOPHILS % (AUTO) 3.2 % (0-6); HEMATOCRIT 42.5 % (42.0-52.0); HEMOGLOBIN 14.7 g/dl (14.0-17.9); LYMPHOCYTES # (AUTO) 2.4 X10'3 (1.1-4.8); LYMPHOCYTES % (AUTO) 38.9 % (21-51); MEAN CORPUSCULAR HEMOGLOBIN 29.8 PG (27.0-31.0); MEAN CORPUSCULAR HGB CONC 34.6 g/dL (33.0-36.5); MONOCYTES # (AUTO) 0.9 X10'3 (0-0.9); MONOCYTES % (AUTO) 14.9 % (2-12); NEUTROPHILS # (AUTO) 2.7 X10'3 (1.8-7.7); NEUTROPHILS % (AUTO) 42.7 % (42-75); PLATELET COUNT 109 X10'3 (140-440); RED BLOOD COUNT 4.94 X10'6 (4.70-6.10); RED CELL DISTRIBUTION WIDTH 14.1 % (11.5-14.5); WHITE BLOOD COUNT 6.2 X10'3 (4.5-11.0)
[2022-12-24 01:00] VITALS: BP 139/85; TEMP 98.2
[2022-12-24 01:10] LABS: ALANINE AMINOTRANSFERASE 45 U/L (12-78); ALBUMIN 3.6 G/DL (3.4-5.0); ALBUMIN/GLOBULIN RATIO 0.7 (1.1-1.5); ALKALINE PHOSPHATASE 56 IU/L (46-116); ANION GAP 8 (8-16); ASPARTATE AMINO TRANSFERASE 57 U/L (10-37); BILIRUBIN,TOTAL 0.4 MG/DL (0.1-1.0); BLOOD UREA NITROGEN 29 MG/DL (7-18); BUN/CREATININE RATIO 24.4 (10.0-20.0); CALCIUM 9.1 MG/DL (8.5-10.1); CHLORIDE 105 MMOL/L (99-107); CREATININE 1.19 MG/DL (0.60-1.10); GLUCOSE 147 MG/DL (70-104); POTASSIUM 3.2 MMOL/L (3.5-5.1); SODIUM 139 MMOL/L (135-145); TOTAL CARBON DIOXIDE 25.7 MMOL/L (24-32); TOTAL PROTEIN 8.5 G/DL (6.4-8.2); eCRCL 73 ML/MIN; eGFR 64 ML/MIN
[2022-12-24 01:16] LABS: PRO BRAIN NATRIURETIC PEPTIDE 146 PG/ML (0-125)
[2022-12-24] MEDS ORDERED: predniSONE 20 mg tablet PO ONE (01:20)
[2022-12-24] MEDS ORDERED: codeine/proMETHazine 5ml UD syrup PO ONE (01:20)
[2022-12-24] MEDS ORDERED: albuterol 2.5 MG/3 ML nebule NEB ONE (01:20)
[2022-12-24] MEDS ORDERED: acetaminophen 325mg tablet PO ONE (01:20)
[2022-12-24] MEDS ORDERED: azithromycin 250mg tablet PO ONE (01:20)
[2022-12-24] MEDS ORDERED: ibuprofen tablet 400 MG TABLET PO ONE (01:20)
[2022-12-24] MEDS ORDERED: potassium Cl 20 mEq SR tablet PO STA (01:26)
[2022-12-24] MEDS ORDERED: PRED20TA PO (01:32)
[2022-12-24] MEDS ORDERED: ACET-1025 PO (01:32)
[2022-12-24] MEDS ORDERED: PROM118S5 PO (01:32)
[2022-12-24] MEDS ORDERED: ALBU6.7H14 INH (01:32)
[2022-12-24] MEDS ORDERED: AZIT-164 PO (01:32)
[2022-12-24 01:35] VITALS: PULSE 88; RESP 16; O2SAT 96
[2022-12-24 01:39] VITALS: PULSE 91; RESP 16; O2SAT 98
[2022-12-24] MEDS ORDERED: guaiFENesin 200mg/20mg codeine phos 10ml UD oral syrup PO ONE (01:40)
--- NOTE | 2022-12-24 02:07 | NUR ---
IV DC'D PT BEING DISCHARGED DRESSING APPLIED
== END 2022-12-24 02:09 | disposition home or self-care (01) ==
LOC: ER 23:41
DX: R06.02 Shortness of breath (principal); E11.9 Type 2 diabetes mellitus without complications; F31.9 Bipolar disorder, unspecified; J45.909 Unspecified asthma, uncomplicated; I12.0 Hypertensive chronic kidney disease with stage 5 chronic kidney disease or end stage renal disease; N18.9 Chronic kidney disease, unspecified; F15.90 Other stimulant use, unspecified, uncomplicated; F17.200 Nicotine dependence, unspecified, uncomplicated
CPT/HCPCS: 36415; 71045; 80053; 83880; 84484; 85025; 93005; 94640; 99285; J7512; 94760; A4615

== ENCOUNTER 2023-05-19 10:29 | Emergency (ER) | payer MEDICAID ==
[~2023-05-19] VITALS: Ht 175.3 cm; Wt 106.5 kg
[~2023-05-19 10:29] MED LIST changes: +ALBU6.7H14 INH
[2023-05-19 11:14] VITALS: BP 170/100; PULSE 81; RESP 16; TEMP 98.4; O2SAT 97
[2023-05-19] MEDS ORDERED: AMOX-117 PO (11:16)
== END 2023-05-19 14:51 | disposition home or self-care (01) ==
LOC: ER 10:29
DX: S61.231A Puncture wound without foreign body of left index finger without damage to nail, initial encounter (principal); I10 Essential (primary) hypertension; E11.9 Type 2 diabetes mellitus without complications; F12.90 Cannabis use, unspecified, uncomplicated; F15.90 Other stimulant use, unspecified, uncomplicated; Z59.00 Homelessness unspecified; W54.0XXA Bitten by dog, initial encounter; Y93.89 Activity, other specified; Y92.89 Other specified places as the place of occurrence of the external cause; Y99.8 Other external cause status
CPT/HCPCS: 99283

== ENCOUNTER 2023-12-29 07:12 | Emergency (ER) | payer MEDICAID ==
[~2023-12-29] VITALS: Ht 175.3 cm; Wt 114.2 kg
[2023-12-29] MEDS ORDERED: iohexol 300mg/ml 100ml inj. ONE (07:37)
[2023-12-29] MEDS: ketorolac trometh 15mg/ml vial 15 MG/ML ML IV ONE (07:39)
[2023-12-29] MEDS: ondansetron/PF 4mg/2ml inj IV ONE (07:39)
[2023-12-29] MEDS: normal saline 1000ml 1,000 ML IV ONE (07:40)
[2023-12-29 08:06] LABS: BASOPHILS % (AUTO) 0.6 % (0-1); EOSINOPHILS # (AUTO) 0.4 X10'3 (0-0.9); EOSINOPHILS % (AUTO) 5.5 % (0-6); HEMATOCRIT 42.2 % (42.0-52.0); HEMOGLOBIN 14.6 g/dl (14.0-17.9); LYMPHOCYTES # (AUTO) 1.5 X10'3 (1.1-4.8); LYMPHOCYTES % (AUTO) 22.2 % (21-51); MEAN CORPUSCULAR HEMOGLOBIN 29.5 PG (27.0-31.0); MEAN CORPUSCULAR HGB CONC 34.6 g/dL (33.0-36.5); MEAN CORPUSCULAR VOLUME 85.3 FL (78-98); MEAN PLATELET VOLUME 8.5 FL (7.4-10.4); MONOCYTES # (AUTO) 0.6 X10'3 (0-0.9); MONOCYTES % (AUTO) 9.2 % (2-12); NEUTROPHILS # (AUTO) 4.2 X10'3 (1.8-7.7); NEUTROPHILS % (AUTO) 62.5 % (42-75); PLATELET COUNT 175 X10'3 (140-440); RED BLOOD COUNT 4.95 X10'6 (4.70-6.10); WHITE BLOOD COUNT 6.7 X10'3 (4.5-11.0)
[2023-12-29 08:18] LABS: ALANINE AMINOTRANSFERASE 21 U/L (12-78); ALBUMIN 3.8 G/DL (3.4-5.0); ALBUMIN/GLOBULIN RATIO 0.9 (1.1-1.5); ALKALINE PHOSPHATASE 92 IU/L (46-116); ANION GAP 9 (8-16); ASPARTATE AMINO TRANSFERASE 21 U/L (10-37); BILIRUBIN,TOTAL 0.4 MG/DL (0.1-1.0); BLOOD UREA NITROGEN 8 MG/DL (7-18); BUN/CREATININE RATIO 7.7 (10.0-20.0); CALCIUM 9.1 MG/DL (8.5-10.1); CHLORIDE 105 MMOL/L (99-107); CREATININE 1.04 MG/DL (0.60-1.10); GLUCOSE 143 MG/DL (70-104); LIPASE 138 U/L (16-77); POTASSIUM 3.7 MMOL/L (3.5-5.1); SODIUM 140 MMOL/L (135-145); TOTAL CARBON DIOXIDE 25.9 MMOL/L (24-32); TOTAL PROTEIN 8.1 G/DL (6.4-8.2); eCRCL 83 ML/MIN; eGFR 75 ML/MIN
[2023-12-29 08:35] VITALS: TEMP 97.1
[2023-12-29] MEDS ORDERED: AMOX-580 PO (08:54)
[2023-12-29] MEDS ORDERED: ONDA-243 PO (08:54)
[2023-12-29 09:01] VITALS: BP 133/88; PULSE 79; RESP 18; O2SAT 98
== END 2023-12-29 09:14 | disposition home or self-care (01) ==
LOC: ER 07:12
DX: A08.4 Viral intestinal infection, unspecified (principal); Z20.822 Contact with and (suspected) exposure to COVID-19; L03.011 Cellulitis of right finger; I10 Essential (primary) hypertension; E11.9 Type 2 diabetes mellitus without complications; F12.90 Cannabis use, unspecified, uncomplicated; F15.90 Other stimulant use, unspecified, uncomplicated; Z79.899 Other long term (current) drug therapy; Z79.2 Long term (current) use of antibiotics
CPT/HCPCS: 36415; 74177; 80053; 83690; 85025; 87811; 96361; 96374; 96375; 99285; J1885; J2405; J7030; Q9967